=== PATIENT | male | born 1950 | race Caucasian/White ===

== ENCOUNTER → 2016-06-23 | Outpatient (CLI) | payer OTHER ==
--- NOTE | 2016-06-23 09:27 | DIAGNOSTIC IMAGING REPORT ---
(BARIUM SWALLOW) ESOPHAGUS CLINICAL HISTORY: Supraglottic mass. Dysphagia. Unilateral vocal cord paralysis. COMPARISON STUDY: None. FLUOROSCOPY TIME: 1.3 minutes. FINDINGS: 29 fluoroscopic images were obtained. There was moderate esophageal dysmotility. No esophageal mass or stricture was identified. The supraglottic mass was not evident by fluoroscopy. A 13 mm barium tablet passed into the stomach. Hlcf-[id number]-yvnbcrah reflux was noted. No definite hiatal hernia was identified. IMPRESSION: 1. Moderate esophageal dysmotility. 2. Mild to moderate gastroesophageal reflux. 3. No esophageal mass or stricture. Electronically signed by: Camilo Talley M.D. 06/23/2016 9:26 AM Dictated Date/Time: 06/23/2016 9:24 AM
== END | disposition home or self-care (01) ==
LOC: C.RAD 07:51
PROVIDERS: ATTEND Otolaryngology
DX: J38.7 Other diseases of larynx (principal); R13.10 Dysphagia, unspecified; J38.01 Paralysis of vocal cords and larynx, unilateral; K22.4 Dyskinesia of esophagus; K21.9 Gastro-esophageal reflux disease without esophagitis